=== PATIENT | male | born 1960 | race African-American/Black ===

== ENCOUNTER 2019-01-06 12:10 | Inpatient (IN) | payer OTHER ==
[2019-01-06 12:54] VITALS: BMI 22.1
--- NOTE | 2019-01-06 15:28 | HP ---
CIWA Score Nausea/Vomitin-Mild Nausea/No Vomiting Muscle Tremors: 3 Anxiety: 2 Agitation: 2 Paroxysmal Sweats: 2 Orientation: 1-Uncertain about Date Tacttile Disturbances: 0-None Auditory Disturbances: 0-None Visual Disturbances: 0-None Headache: 1-Very Mild CIWA-Ar Total Score: 12 - Admission Criteria OASAS Guidelines: Admission for Medically Managed Detox: Requires at least one of the followin. CIWA greater than 12 2. Seizures within the past 24 hours 3. Delirium tremens within the past 24 hours 4. Hallucinations within the past 24 hours 5. Acute intervention needed for co occurring medical disorder 6. Acute intervention needed for co occurring psychiatric disorder 7. Severe withdrawal that cannot be handled at a lower level of care (continued vomiting, continued diarrhea, abnormal vital signs) requiring intravenous medication and/or fluids 8. Patient presents the following: CIWA greater than 12 Admission Criteria Met: Admission criteria met Admission ROS [facility] Chief Complaint: here for alcohol detox 59 yo with h/o neck injury secondary to fall, HTN- on amlodipine,. alcohol- 1 pint/day, lsst drink last night no heroin, cocaine, occ marijuana DUR: : oxycodone 5mg pills #12 on 01/04/19 and #10 on 12/29/18: says gets this for neck pain- utox neg for oxycodone KARL: 0.042, Utox:THC, opiates- pt denies use of opiates Allergies/Adverse Reactions: Allergies Allergy/AdvReac Type Severity Reaction Status Date / Time ibuprofen Allergy Severe Swelling Verified 01/06/19 16:35 - Ebola screening Have you traveled outside of the country in the last 21 days: No (N) Have you had contact with anyone from an Ebola affected area: No Have you been sick,other than usual withdrawal symptoms: No Do you have a fever: No - Review of Systems Constitutional: No Symptoms Reported EENT: reports: No Symptoms Reported Respiratory: reports: No Symptoms reported Cardiac: reports: No Symptoms Reported GI: reports: No Symptoms Reported : reports: No Symptoms Reported Musculoskeletal: reports: Back Pain, Other (knee pain and shoulder pain) Integumentary: reports: No Symptoms Reported Neuro: reports: No Symptoms reported Endocrine: reports: No Symptoms Reported Hematology: reports: No Symptoms Reported Psychiatric: reports: No Sypmtoms Reported Other Systems: Reviewed and Negative Patient History - Patient Medical History Hx Asthma: No (BRONCHITIS AND ON MDI --ALBUTEROL) Hx Chronic Obstructive Pulmonary Disease (COPD): No Hx Cardiac Disorders: No Hx Congestive Heart Failure: No Hx Hypertension: Yes (ON AMLODIPINE) Hx Hypercholesterolemia: Yes (NOT ON MED) HX Cerebrovascular Accident: No Hx Seizures: No Hx Diabetes: No Hx Gastrointestinal Disorders: No Hx Genitourinary Disorders: No Hx Sexually Transmitted Disorders: No Hx Renal Disease (ESRD): No Hx Thyroid Disease: No Hx Human Immunodeficiency Virus (HIV): No (NEGATIVE) Hx Hepatitis C: No Hx Depression: No Hx Suicide Attempt: No (DENIES) Hx Bipolar Disorder: No Hx Schizophrenia: No - Patient Surgical History Past Surgical History: Yes Hx Neurologic Surgery: No Hx Cataract Extraction: No Hx Cardiac Surgery: No Hx Lung Surgery: No Hx Breast Surgery: No Hx Breast Biopsy: No Hx Abdominal Surgery: Yes (LEFT INGUINAL HERNIA SX AT 18 ) Hx Appendectomy: No Hx Cholecystectomy: No Hx Genitourinary Surgery: No Hx Section: No Hx Orthopedic Surgery: Yes (ARTHROSCOPIC LEFT KNEE 2013;FX RIGHT WRIST WITH SX IN LATE ) Anesthesia Reaction: No - PPD History Previous Implant?: Yes Documented Results: Positive w/proof Results: CXR TBD PPD to be Administered?: No - Reproductive History Patient : No - Smoking Cessation Smoking history: Current every day smoker Have you smoked in the past 12 months: Yes Aproximately how many cigarettes per day: 5 Hx Chewing Tobacco Use: No Initiated information on smoking cessation: Yes 'Breaking Loose' booklet given: 01/06/19 - Substance & Tx. History Hx Alcohol Use: Yes Substance Use Type: Marijuana, Prescribed - Substances Abused Alcohol Route: Oral Frequency: Daily Amount used: 1 PINT VODKA Age of first use: 18 Date of Last Use: 01/06/19 Family Disease History - Family Disease History Family Disease History: Heart Disease: Mother (BLOOD DISEASE & [place]-), Other: Mother Admission Physical Exam BHS - Vital Signs Vital Signs: Vital Signs - 24 hr 01/06/19 12:52 Temperature 98.5 F Pulse Rate 86 Respiratory 20 Rate Blood Pressure 142/91 - Physical General Appearance: Yes: Within Normal Limits, Disheveled HEENTM: Yes: Within Normal Limits, Hearing grossly Normal, Pharynx Normal Respiratory: Yes: Within Normal Limits, Lungs Clear Neck: Yes: Other (pt has scar back of neck from injury and surgery) Cardiology: Yes: Within Normal Limits, Regular Rhythm, Regular Rate Abdominal: Yes: Within Normal Limits Back: Yes: Within Normal Limits Musculoskeletal: Yes: Within Normal Limits, full range of Motion, Gait Steady Extremities: Yes: Within Normal Limits, Normal Capillary Refill Neurological: Yes: Within Normal Limits Integumentary: Yes: Within Normal Limits Lymphatic: Yes: Within Normal Limits - Diagnostic (1) Alcohol dependence with uncomplicated withdrawal Current Visit: Yes Status: Acute (2) History of asthma Current Visit: No Status: Chronic (3) Hypertension Current Visit: Yes Status: Chronic Qualifiers: Hypertension type: essential hypertension Qualified Code(s): I10 - Essential (primary) hypertension BHS Breath Alcohol Content Breath Alcohol Content: 0.042 Urine Drug Screen - Results Drug Screen Negative: No Urine Drug Screen Results: THC-Marijuana, OPI-Opiates Inpatient Rehab Admission - Rehab Decision to Admit Inpatient rehab admission?: No
[2019-01-06] MEDS ORDERED: IBUPROFEN 400 MG TABLET (FP) PO PRN (15:33)
[2019-01-06] MEDS ORDERED: MAGNESIUM HYDROX 2400MG/30ML ORAL SUSPENSION 30 ML CUP PO PRN (15:33)
[2019-01-06] MEDS ORDERED: MAGNESIUM CITRATE 300 ML BOTTLE PO PRN (15:33)
[2019-01-06] MEDS ORDERED: MENTHOL/PHENOL 1 EACH UD MM PRN (15:33)
[2019-01-06] MEDS ORDERED: guaiFENesin/D-METHORPHAN HB 10 ML UNIT-DOSE CUPS PO PRN (15:33)
[2019-01-06] MEDS ORDERED: hydrOXYzine PAMOATE 50 MG CAPSULE (FP) PO PRN (15:33)
[2019-01-06] MEDS ORDERED: P-EPHED 60MG/TRIPROLIDI 2.5MG TABLET PO PRN (15:33)
[2019-01-06] MEDS ORDERED: LOPERAMIDE HCL 2 MG CAPSULE PO PRN (15:33)
[2019-01-06] MEDS ORDERED: ALBUTEROL SO4 8 GM HFA INHALER IH PRN (15:35)
[2019-01-06] MEDS: ACETAMINOPHEN 325 MG TABLET (FP) PO PRN (17:49)
[2019-01-06] MEDS: amLODIPine BESYLATE 10 MG TABLET (FP) PO SCH (17:49)
[2019-01-06] MEDS: CYCLOBENZAPRINE HCL 5 MG TABLET PO PRN (18:35)
[2019-01-06] MEDS: THIAMINE HCL 100 MG TABLET (FP) PO SCH (22:36)
[2019-01-06] MEDS: MELATONIN 5 MG TABLETS PO PRN (22:36)
[2019-01-06] MEDS ORDERED: chlordiazePOXIDE HCL 25 MG CAPSULE PO PRN (22:42)
[2019-01-06] MEDS: chlordiazePOXIDE HCL 25 MG CAPSULE PO SCH (22:54)
[2019-01-07] MEDS: CYCLOBENZAPRINE HCL 5 MG TABLET PO PRN ×2 (05:41→11:01)
[2019-01-07] MEDS: chlordiazePOXIDE HCL 25 MG CAPSULE PO SCH ×4 (05:41→22:19)
[2019-01-07 10:19] LABS: HEMATOCRIT 36.7 % (35.4-49); HEMOGLOBIN 12.2 GM/dL (11.7-16.9); MCH 29.3 pg (25.7-33.7); MCHC 33.4 g/dl (32.0-35.9); MEAN CELL VOLUME 87.8 fl (80-96); MEAN PLT VOLUME 8.3 fl (7.5-11.1); PLATELET COUNT 225 K/MM3 (134-434); RBC 4.18 M/mm3 (4.00-5.60); RDW 16.3 % (11.9-15.9)
[2019-01-07 10:33] LABS: ALBUMIN 3.4 g/dl (3.4-5.0); ALK PHOS 102 U/L (45-117); ANION GAP 6 MMOL/L (8-16); BILIRUBIN,TOTAL 0.7 mg/dL (0.2-1); BLOOD UREA NITROGEN 11 mg/dL (7-18); CALCIUM 9.2 mg/dL (8.5-10.1); CHLORIDE 100 mmol/L (98-107); CO2 29 mmol/L (21-32); CREATININE 0.7 mg/dL (0.55-1.3); GLUCOSE,RANDOM 77 mg/dL (74-106); POTASSIUM 3.6 mmol/L (3.5-5.1); SGOT/AST 53 U/L (15-37); SGPT/ALT 32 U/L (13-61); SODIUM 136 mmol/L (136-145); TOT PROT 7.1 g/dl (6.4-8.2)
[2019-01-07] MEDS: PRENATAL VITAMINS W/ FOLIC ACID TABLET (FP) PO SCH (10:58)
[2019-01-07] MEDS: NICOTINE 7 MG/24 HOURS TOPICAL PATCH TD SCH (10:58)
[2019-01-07] MEDS: amLODIPine BESYLATE 10 MG TABLET (FP) PO SCH (10:58)
[2019-01-07] MEDS: ACETAMINOPHEN 325 MG TABLET (FP) PO PRN (17:43)
--- NOTE | 2019-01-07 18:32 | PN ---
S CIWA - CIWA Score Nausea/Vomitin Muscle Tremors: 4-Moderate,w/Arms Extend Anxiety: 4-Mod. Anxious/Guarded Agitation: 3 Paroxysmal Sweats: 3 Orientation: 0-Oriented Tacttile Disturbances: 1-Very Mild Itch/Numbness Auditory Disturbances: 0-None Visual Disturbances: 0-None Headache: 0-None Present CIWA-Ar Total Score: 17 BHS Progress Note (SOAP) Subjective: Sweating, interrupted sleep Objective: 01/07/19 18:30 Last Vital Signs Temp Pulse Resp BP Pulse Ox 98.4 F 88 18 153/78 01/07/19 18:25 01/07/19 18:25 01/07/19 18:25 01/07/19 18:25 H/O HTN (on med) Laboratory Tests 01/07/19 01/07/19 01/07/19 07:45 07:45 07:45 WBC 3.0 L RBC 4.18 Hgb 12.2 Hct 36.7 MCV 87.8 MCH 29.3 MCHC 33.4 RDW 16.3 H Plt Count 225 D MPV 8.3 Sodium 136 Potassium 3.6 Chloride 100 Carbon Dioxide 29 Anion Gap 6 L BUN 11 Creatinine 0.7 Creat Clearance w eGFR > 60 Random Glucose 77 Calcium 9.2 Total Bilirubin 0.7 AST 53 H ALT 32 Alkaline Phosphatase 102 Total Protein 7.1 Albumin 3.4 RPR Titer Nonreactive Labs reviewed Assessment: 01/07/19 18:31 Withdrawal symptoms Plan: Continue detox Encouraged PO water hydration
[2019-01-07] MEDS: THIAMINE HCL 100 MG TABLET (FP) PO SCH (22:19)
[2019-01-07] MEDS: MELATONIN 5 MG TABLETS PO PRN (22:19)
[2019-01-07] MEDS: MAG HYDROX/AL HYDROX/SIMETH 30 ML UNIT-DOSE CUP PO PRN (22:20)
[2019-01-08] MEDS: CYCLOBENZAPRINE HCL 5 MG TABLET PO PRN ×2 (06:39→22:07)
[2019-01-08] MEDS: chlordiazePOXIDE HCL 25 MG CAPSULE PO SCH ×3 (06:40→17:44)
[2019-01-08] MEDS: PRENATAL VITAMINS W/ FOLIC ACID TABLET (FP) PO SCH (10:35)
[2019-01-08] MEDS: amLODIPine BESYLATE 10 MG TABLET (FP) PO SCH (10:35)
[2019-01-08] MEDS: NICOTINE 7 MG/24 HOURS TOPICAL PATCH TD SCH (10:36)
--- NOTE | 2019-01-08 13:41 | PN ---
S CIWA - CIWA Score Nausea/Vomitin-No Nausea/No Vomiting Muscle Tremors: 4-Moderate,w/Arms Extend Anxiety: 3 Agitation: 2 Paroxysmal Sweats: 2 Orientation: 0-Oriented Tacttile Disturbances: 0-None Auditory Disturbances: 0-None Visual Disturbances: 0-None Headache: 1-Very Mild CIWA-Ar Total Score: 12 S Progress Note (SOAP) Subjective: neck pain sweats agitation body aches Objective: 01/08/19 13:39 Vital Signs Temperature 98.1 F 01/08/19 10:43 Pulse Rate 76 01/08/19 10:43 Respiratory Rate 18 01/08/19 10:43 Blood Pressure 113/73 01/08/19 10:43 O2 Sat by Pulse Oximetry (%) Laboratory Tests 01/07/19 01/07/19 01/07/19 07:45 07:45 07:45 WBC 3.0 L RBC 4.18 Hgb 12.2 Hct 36.7 MCV 87.8 MCH 29.3 MCHC 33.4 RDW 16.3 H Plt Count 225 D MPV 8.3 Sodium 136 Potassium 3.6 Chloride 100 Carbon Dioxide 29 Anion Gap 6 L BUN 11 Creatinine 0.7 Creat Clearance w eGFR > 60 Random Glucose 77 Calcium 9.2 Total Bilirubin 0.7 AST 53 H ALT 32 Alkaline Phosphatase 102 Total Protein 7.1 Albumin 3.4 RPR Titer Nonreactive aaox3 ambulating no acute distress Assessment: 01/08/19 13:41 withdrawal sx Plan: continue detox increase fluids lidocaine patch
[2019-01-08] MEDS ORDERED: LIDOCAINE 5% TOPICAL PATCH TP ONE (14:50)
[2019-01-08] MEDS: ACETAMINOPHEN 325 MG TABLET (FP) PO PRN ×2 (17:46→22:08)
[2019-01-08] MEDS ORDERED: METHYL SALICYLATE/MENTHOL OINT 30 GM TUBE TP SCH (22:00)
[2019-01-08] MEDS: THIAMINE HCL 100 MG TABLET (FP) PO SCH (22:07)
[2019-01-08] MEDS: chlordiazePOXIDE 5 MG CAPSULE PO SCH (22:07)
[2019-01-08] MEDS: LIDOCAINE PATCH REMOVAL MC SCH (22:08)
[2019-01-08] MEDS: MELATONIN 5 MG TABLETS PO PRN (22:08)
[2019-01-09] MEDS: chlordiazePOXIDE 5 MG CAPSULE PO SCH ×3 (05:55→17:38)
[2019-01-09] MEDS: MAG HYDROX/AL HYDROX/SIMETH 30 ML UNIT-DOSE CUP PO PRN (05:57)
[2019-01-09] MEDS: LIDOCAINE 5% TOPICAL PATCH TP SCH (10:13)
[2019-01-09] MEDS: amLODIPine BESYLATE 10 MG TABLET (FP) PO SCH (10:13)
[2019-01-09] MEDS: PRENATAL VITAMINS W/ FOLIC ACID TABLET (FP) PO SCH (10:13)
[2019-01-09] MEDS: NICOTINE 7 MG/24 HOURS TOPICAL PATCH TD SCH (10:14)
--- NOTE | 2019-01-09 11:45 | PN ---
BHS Progress Note (SOAP) Subjective: irritable tired sweats Objective: 01/09/19 11:45 Vital Signs Temperature 98.4 F 01/09/19 10:04 Pulse Rate 104 H 01/09/19 10:04 Respiratory Rate 18 01/09/19 10:04 Blood Pressure 126/95 01/09/19 10:04 O2 Sat by Pulse Oximetry (%) aaox3 ambulating no acute distress Assessment: 01/09/19 11:45 mild withdrawal sx Plan: continue detox increase fluids d/c in am
[2019-01-09] MEDS: LIDOCAINE PATCH REMOVAL MC SCH (22:07)
[2019-01-09] MEDS: THIAMINE HCL 100 MG TABLET (FP) PO SCH (22:08)
[2019-01-09] MEDS: MELATONIN 5 MG TABLETS PO PRN (22:08)
[2019-01-09] MEDS: CYCLOBENZAPRINE HCL 5 MG TABLET PO PRN (22:08)
[2019-01-09] MEDS: chlordiazePOXIDE HCL 10 MG CAPSULE PO SCH (22:08)
[2019-01-09] MEDS: ACETAMINOPHEN 325 MG TABLET (FP) PO PRN (22:10)
[2019-01-10] MEDS: chlordiazePOXIDE HCL 10 MG CAPSULE PO SCH ×2 (06:23→10:31)
--- NOTE | 2019-01-10 09:50 | DS ---
[facility] Detox Discharge Summary Admission Date: 01/06/19 Discharge Date: 01/10/19 - History Present History: Alcohol Dependence - Physical Exam Results Vital Signs: Vital Signs Temperature 97.5 F L 01/10/19 07:52 Pulse Rate 86 01/10/19 07:52 Respiratory Rate 18 01/10/19 07:52 Blood Pressure 129/94 01/10/19 07:52 O2 Sat by Pulse Oximetry (%) - Treatment Hospital Course: Detox Protocol Followed, Detoxed Safely, Responded well, Discharged Condition Good, Rehab Referral Accepted - Medication Discharge Medications: Ambulatory Orders Albuterol Sulfate Inhaler - [Ventolin HFA Inhaler -] 2 inh PO Q4H PRN 05/03/16 Albuterol Sulfate Inhaler - [Ventolin HFA Inhaler -] 2 puff IH Q4HPO PRN #1 inhaler 05/24/16 Amlodipine Besylate [Norvasc -] 10 mg PO DAILY #30 tablet 05/24/16 - Diagnosis (1) Alcohol dependence with uncomplicated withdrawal Current Visit: Yes Status: Chronic (2) HLD (hyperlipidemia) Current Visit: Yes Status: Chronic (3) Hx of bronchitis Current Visit: Yes Status: Chronic (4) Hypertension Current Visit: Yes Status: Chronic Qualifiers: Hypertension type: essential hypertension Qualified Code(s): I10 - Essential (primary) hypertension (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
[2019-01-10 10:00] VITALS: BP 127/85; PULSE 96; TEMP 98.1
[2019-01-10] MEDS: PRENATAL VITAMINS W/ FOLIC ACID TABLET (FP) PO SCH (10:29)
[2019-01-10] MEDS: amLODIPine BESYLATE 10 MG TABLET (FP) PO SCH (10:30)
[2019-01-10] MEDS: NICOTINE 7 MG/24 HOURS TOPICAL PATCH TD SCH (10:30)
[2019-01-10] MEDS: LIDOCAINE 5% TOPICAL PATCH TP SCH (10:30)
[2019-01-10] MEDS: ACETAMINOPHEN 325 MG TABLET (FP) PO PRN (10:31)
== END 2019-01-10 10:55 | disposition home or self-care (01) | DRG 775 ==
LOC: YASAS 12:10 → Y6N 16:03
PROVIDERS: ADMIT Surgery; ATTEND Surgery
PROC: HZ2ZZZZ Detoxification Services for Substance Abuse Treatment (ICD-10-PCS; principal; 2019-01-06)
DX: F10.230 Alcohol dependence with withdrawal, uncomplicated (principal); F17.210 Nicotine dependence, cigarettes, uncomplicated; I10 Essential (primary) hypertension; E78.5 Hyperlipidemia, unspecified; R76.11 Nonspecific reaction to tuberculin skin test without active tuberculosis; J45.909 Unspecified asthma, uncomplicated
CPT/HCPCS: 36415; 71046-TC-FY; 80053; 85027; 86593

== ENCOUNTER 2019-05-18 09:54 | Inpatient (IN) | payer OTHER ==
[2019-05-18 14:28] VITALS: BMI 22.8
--- NOTE | 2019-05-18 15:00 | HP ---
CIWA Score Nausea/Vomitin-No Nausea/No Vomiting Muscle Tremors: 1-None Visible, but [place] Anxiety: 4-Mod. Anxious/Guarded Agitation: 4-Moderately Restless Paroxysmal Sweats: 3 Orientation: 0-Oriented Tacttile Disturbances: 0-None Auditory Disturbances: 0-None Visual Disturbances: 0-None Headache: 0-None Present CIWA-Ar Total Score: 12 - Admission Criteria OASAS Guidelines: Admission for Medically Managed Detox: Requires at least one of the followin. CIWA greater than 12 2. Seizures within the past 24 hours 3. Delirium tremens within the past 24 hours 4. Hallucinations within the past 24 hours 5. Acute intervention needed for co occurring medical disorder 6. Acute intervention needed for co occurring psychiatric disorder 7. Severe withdrawal that cannot be handled at a lower level of care (continued vomiting, continued diarrhea, abnormal vital signs) requiring intravenous medication and/or fluids 8. Admission ROS BHS - HPI Chief Complaint: I need to stop drinking and get better. Allergies/Adverse Reactions: Allergies Allergy/AdvReac Type Severity Reaction Status Date / Time ibuprofen Allergy Severe Swelling Verified 05/18/19 14:12 ZUNILDA Inhibitors AdvReac Verified 05/18/19 14:54 History of Present Illness: pt is a 59yr old male with a history of alcohol dependence seeking detox for treatment. Exam Limitations: No Limitations - Ebola screening Have you traveled outside of the country in the last 21 days: No Have you had contact with anyone from an Ebola affected area: No Have you been sick,other than usual withdrawal symptoms: No Do you have a fever: No - Review of Systems Constitutional: Diaphoresis, Unintentional Wgt. Loss EENT: reports: No Symptoms Reported Respiratory: reports: No Symptoms reported Cardiac: reports: No Symptoms Reported GI: reports: Poor Fluid Intake : reports: No Symptoms Reported Musculoskeletal: reports: Back Pain, Muscle Pain Integumentary: reports: Rash, Other (plaque psoriasis all over body) Endocrine: reports: Excessive Sweating, Flushing, Intolerance to Cold, Intolerance to Heat Hematology: reports: No Symptoms Reported Psychiatric: reports: Judgement Intact, Orientated x3, Agitated, Anxious Other Systems: Reviewed and Negative Patient History - Patient Medical History Hx Anemia: No Hx Asthma: No (BRONCHITIS AND ON MDI --ALBUTEROL) Hx Chronic Obstructive Pulmonary Disease (COPD): No Hx Cancer: No Hx Cardiac Disorders: No Hx Congestive Heart Failure: No Hx Hypertension: Yes (ON AMLODIPINE) Hx Hypercholesterolemia: Yes (NOT ON MED) HX Cerebrovascular Accident: No Hx Seizures: No Hx Dementia: No Hx Diabetes: No Hx Gastrointestinal Disorders: No Hx Liver Disease: No Hx Genitourinary Disorders: No Hx Sexually Transmitted Disorders: No Hx Renal Disease (ESRD): No Hx Thyroid Disease: No Hx Human Immunodeficiency Virus (HIV): No (NEGATIVE) Hx Hepatitis C: No Hx Depression: No Hx Suicide Attempt: No (DENIES) Hx Bipolar Disorder: No Hx Schizophrenia: No - Patient Surgical History Past Surgical History: Yes Hx Neurologic Surgery: No Hx Cataract Extraction: No Hx Cardiac Surgery: No Hx Lung Surgery: No Hx Breast Surgery: No Hx Breast Biopsy: No Hx Abdominal Surgery: Yes (LEFT INGUINAL HERNIA SX AT 18 ) Hx Appendectomy: No Hx Cholecystectomy: No Hx Genitourinary Surgery: No Hx Section: No Hx Orthopedic Surgery: Yes (ARTHROSCOPIC LEFT KNEE 2013;FX RIGHT WRIST WITH SX IN LATE ) Other Surgical History: cervical surgery 2010 Anesthesia Reaction: No - PPD History Previous Implant?: Yes Documented Results: Positive w/proof Results: CXR TBD PPD to be Administered?: No - Reproductive History Patient is a Female of Child Bearing Age (11 -55 yrs old): No - Smoking Cessation Smoking history: Current every day smoker Have you smoked in the past 12 months: Yes Aproximately how many cigarettes per day: 5 Hx Chewing Tobacco Use: No Initiated information on smoking cessation: Yes 'Breaking Loose' booklet given: 05/18/19 - Substance & Tx. History Hx Alcohol Use: Yes Substance Use Type: Alcohol Hx Substance Use Treatment: Yes (last detox [facility] 12/2018) - Substances abused Alcohol Substance route: Oral Frequency: Daily Amount used: 1 PINT OF VODKA Age of first use: 16 Date of last use: 05/17/19 Family Disease History - Family Disease History Family Disease History: Heart Disease: Mother (BLOOD DISEASE & [place]-), Other: Mother Admission Physical Exam BHS - Vital Signs Vital Signs: Vital Signs - 24 hr 05/18/19 14:18 Temperature 98.2 F Pulse Rate 78 Respiratory 18 Rate Blood Pressure 195/108 H - Physical General Appearance: Yes: Appropriately Dressed, Moderate Distress, Tremorous, Irritable, Sweating HEENTM: Yes: Hearing grossly Normal, Normal Voice Respiratory: Yes: Lungs Clear, Normal Breath Sounds, No Respiratory Distress Neck: Yes: No masses,lesions,Nodules Breast: Yes: Within Normal Limits Cardiology: Yes: Regular Rhythm, Regular Rate, S1, S2 Abdominal: Yes: Normal Bowel Sounds, Non Tender, Soft Genitourinary: Yes: Within Normal Limits Back: Yes: Normal Inspection Musculoskeletal: Yes: Back pain, Muscle Pain, Other (stiff neck d/t old sugery to his cervical) Extremities: Yes: Normal Capillary Refill, Non-Tender, Tremors Neurological: Yes: Fully Oriented, Alert, Normal Response Integumentary: Yes: Other (plaque psoriasis to legs, arms, hands) Lymphatic: Yes: Within Normal Limits - Diagnostic (1) Alcohol dependence with uncomplicated withdrawal Current Visit: Yes Status: Chronic (2) HLD (hyperlipidemia) Current Visit: No Status: Chronic Qualifiers: Hyperlipidemia type: unspecified Qualified Code(s): E78.5 - Hyperlipidemia , unspecified (3) History of asthma Current Visit: Yes Status: Chronic (4) Hypertension Current Visit: Yes Status: Chronic Qualifiers: Hypertension type: essential hypertension Qualified Code(s): I10 - Essential (primary) hypertension (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
[2019-05-18] MEDS ORDERED: BISMUTH SUBSALICYLATE 524 MG/30 ML UD PO PRN (15:17)
[2019-05-18] MEDS ORDERED: MAG HYDROX/AL HYDROX/SIMETH 30 ML UNIT-DOSE CUP PO PRN (15:17)
[2019-05-18] MEDS ORDERED: hydrOXYzine PAMOATE 25 MG CAPSULE (FP) PO PRN (15:17)
[2019-05-18] MEDS ORDERED: chlordiazePOXIDE HCL 25 MG CAPSULE PO PRN (15:17)
[2019-05-18] MEDS ORDERED: ONDANSETRON *ODT* 4 MG TABLET SL PRN (15:17)
[2019-05-18] MEDS ORDERED: MAGNESIUM CITRATE 300 ML BOTTLE PO PRN (15:17)
[2019-05-18] MEDS ORDERED: MAGNESIUM HYDROX 2400MG/30ML ORAL SUSPENSION 30 ML CUP PO PRN (15:17)
[2019-05-18] MEDS ORDERED: ACETAMINOPHEN 325 MG TABLET (FP) PO PRN (15:17)
[2019-05-18] MEDS ORDERED: NICOTINE POLACRILEX 4 MG GUM BUC PRN (15:17)
[2019-05-18] MEDS ORDERED: MENTHOL/PHENOL 1 EACH UD MM PRN (15:17)
[2019-05-18] MEDS ORDERED: ALBUTEROL SO4 8 GM HFA INHALER IH PRN (15:20)
[2019-05-18 16:06] LABS: HEMATOCRIT 35.1 % (35.4-49); HEMOGLOBIN 11.4 GM/dL (11.7-16.9); MCH 29.4 pg (25.7-33.7); MCHC 32.6 g/dl (32.0-35.9); MEAN CELL VOLUME 90.2 fl (80-96); MEAN PLT VOLUME 8.2 fl (7.5-11.1); PLATELET COUNT 172 K/MM3 (134-434); RBC 3.89 M/mm3 (4.00-5.60); RDW 17.9 % (11.9-15.9); WHITE BLOOD COUNT 3.2 K/mm3 (4.0-10.0)
[2019-05-18 16:23] LABS: ALBUMIN 3.7 g/dl (3.4-5.0); BILIRUBIN,TOTAL 0.4 mg/dL (0.2-1); BLOOD UREA NITROGEN 9.8 mg/dL (7-18); CALCIUM 8.6 mg/dL (8.5-10.1); CREATININE 0.8 mg/dL (0.55-1.3); POTASSIUM 3.6 mmol/L (3.5-5.1); TOT PROT 7.9 g/dl (6.4-8.2)
[2019-05-18] MEDS: FLUOCINONIDE 0.05% TOP OINT (60 GM TUBE) TP SCH ×2 (20:42→23:06)
[2019-05-18] MEDS: amLODIPine BESYLATE 10 MG TABLET (FP) PO SCH (20:43)
[2019-05-18] MEDS: chlordiazePOXIDE HCL 25 MG CAPSULE PO SCH ×2 (20:45→23:06)
[2019-05-18] MEDS: THIAMINE HCL 100 MG TABLET (FP) PO SCH (23:06)
[2019-05-18] MEDS: METHOCARBAMOL 500 MG TABLET PO PRN (23:10)
[2019-05-18] MEDS: MELATONIN 5 MG TABLETS PO PRN (23:10)
[2019-05-19] MEDS: chlordiazePOXIDE HCL 25 MG CAPSULE PO SCH ×4 (06:24→22:34)
[2019-05-19] MEDS: NICOTINE 21 MG/24 HOURS TOPICAL PATCH TD SCH (11:11)
[2019-05-19] MEDS: amLODIPine BESYLATE 10 MG TABLET (FP) PO SCH (11:15)
[2019-05-19] MEDS: PRENATAL VITAMINS W/ FOLIC ACID TABLET (FP) PO SCH (11:15)
[2019-05-19] MEDS: ACETAMINOPHEN 325 MG TABLET (FP) PO PRN (11:20)
[2019-05-19] MEDS: FLUOCINONIDE 0.05% TOP OINT (60 GM TUBE) TP SCH ×4 (12:08→23:14)
--- NOTE | 2019-05-19 12:09 | PN ---
S CIWA - CIWA Score Nausea/Vomitin-Mild Nausea/No Vomiting Muscle Tremors: 2 Anxiety: 2 Agitation: 0-Normal Activity Paroxysmal Sweats: 2 Orientation: 0-Oriented Tacttile Disturbances: 0-None Auditory Disturbances: 0-None Visual Disturbances: 0-None Headache: 3-Moderate CIWA-Ar Total Score: 10 BHS Progress Note (SOAP) Subjective: PATIENT C/O HEADACHE, ANXIETY, NIGHT SWEATS, FEELING TIRED AND SHAKES. Objective: 05/19/19 12:06 Laboratory Tests 05/18/19 05/18/19 05/18/19 15:15 15:15 15:15 WBC 3.2 L RBC 3.89 L Hgb 11.4 L Hct 35.1 L MCV 90.2 MCH 29.4 MCHC 32.6 RDW 17.9 H Plt Count 172 D MPV 8.2 Sodium 142 Potassium 3.6 Chloride 106 Carbon Dioxide 28 Anion Gap 9 BUN 9.8 Creatinine 0.8 Est GFR (CKD-EPI)AfAm 114.93 Est GFR (CKD-EPI)NonAf 99.16 Random Glucose 69 L Calcium 8.6 Total Bilirubin 0.4 AST 69 H ALT 30 Alkaline Phosphatase 98 Total Protein 7.9 Albumin 3.7 RPR Titer Nonreactive Vital Signs Temperature 98.1 F 05/19/19 09:52 Pulse Rate 74 05/19/19 09:52 Respiratory Rate 18 05/19/19 09:52 Blood Pressure 156/100 05/19/19 09:52 O2 Sat by Pulse Oximetry (%) PE: ALERT AND ORIENTED X 3 SKIN WARM AND DRY EXT FULL ROM, AMB AD OBEY, MILD TREMORS MILDLY ANXIOUS Assessment: 05/19/19 12:08 WITHDRAWAL SX Plan: CONTINUE DETOX MONITOR CLINICALLY
[2019-05-19] MEDS: LIDOCAINE 5% TOPICAL PATCH TP SCH (18:11)
--- NOTE | 2019-05-19 19:48 | PN ---
BHS Progress Note Note: patient has heperkeratosis both feet has been having problem for 2 years callus betadine soak both feet feet bid each 10 mins
[2019-05-19] MEDS: THIAMINE HCL 100 MG TABLET (FP) PO SCH (22:34)
[2019-05-19] MEDS: LIDOCAINE PATCH REMOVAL MC SCH (22:35)
[2019-05-19] MEDS: MELATONIN 5 MG TABLETS PO PRN (22:35)
[2019-05-19] MEDS: AMMONIUM LACTATE 12% LOTION 225 GM BOTTLE TP SCH (22:55)
[2019-05-19] MEDS ORDERED: cloNIDine HCL 0.1 MG TABLET PO ONE (23:29)
--- NOTE | 2019-05-19 23:31 | PN ---
S Progress Note Note: Patient's blood pressure is B/P 160/90. Patient is asymptomatic. Vital Signs Temperature 98.2 F 05/19/19 21:49 Pulse Rate 78 05/19/19 21:49 Respiratory Rate 16 05/19/19 21:49 Blood Pressure 160/90 05/19/19 21:49 O2 Sat by Pulse Oximetry (%) Action: Clonidine 0.1mg tablet oral ordered
[2019-05-20] MEDS: chlordiazePOXIDE HCL 25 MG CAPSULE PO SCH ×2 (06:37→11:22)
[2019-05-20] MEDS: NICOTINE 21 MG/24 HOURS TOPICAL PATCH TD SCH (11:17)
[2019-05-20] MEDS: FLUOCINONIDE 0.05% TOP OINT (60 GM TUBE) TP SCH ×4 (11:18→23:47)
[2019-05-20] MEDS: AMMONIUM LACTATE 12% LOTION 225 GM BOTTLE TP SCH ×2 (11:19→23:47)
[2019-05-20] MEDS: amLODIPine BESYLATE 10 MG TABLET (FP) PO SCH (11:21)
[2019-05-20] MEDS: PRENATAL VITAMINS W/ FOLIC ACID TABLET (FP) PO SCH (11:21)
[2019-05-20] MEDS: ACETAMINOPHEN 325 MG TABLET (FP) PO PRN (11:27)
--- NOTE | 2019-05-20 14:57 | PN ---
S CIWA - CIWA Score Nausea/Vomitin-No Nausea/No Vomiting Muscle Tremors: None Anxiety: 4-Mod. Anxious/Guarded Agitation: 4-Moderately Restless Paroxysmal Sweats: No Perspiration Orientation: 0-Oriented Tacttile Disturbances: 0-None Auditory Disturbances: 0-None Visual Disturbances: 0-None Headache: 0-None Present CIWA-Ar Total Score: 8 BHS Progress Note (SOAP) Subjective: States he is feeling ok as the medication is helping with alleviating symptoms. Patient refused to elaborate. Objective: 05/20/19 14:53 Last Vital Signs Temp Pulse Resp BP Pulse Ox 97.7 F 83 16 143/97 05/20/19 14:11 05/20/19 14:11 05/20/19 14:11 05/20/19 14:11 Elevated b/p (has HTN, on norvasc 10mg daily) Laboratory Tests 05/18/19 05/18/19 05/18/19 15:15 15:15 15:15 WBC 3.2 L RBC 3.89 L Hgb 11.4 L Hct 35.1 L MCV 90.2 MCH 29.4 MCHC 32.6 RDW 17.9 H Plt Count 172 D MPV 8.2 Sodium 142 Potassium 3.6 Chloride 106 Carbon Dioxide 28 Anion Gap 9 BUN 9.8 Creatinine 0.8 Est GFR (CKD-EPI)AfAm 114.93 Est GFR (CKD-EPI)NonAf 99.16 Random Glucose 69 L Calcium 8.6 Total Bilirubin 0.4 AST 69 H ALT 30 Alkaline Phosphatase 98 Total Protein 7.9 Albumin 3.7 RPR Titer Nonreactive Labs reviewed Assessment: 05/20/19 14:54 Withdrawal symptoms Plan: Continue detox Encouraged PO water intake
[2019-05-20] MEDS: LIDOCAINE 5% TOPICAL PATCH TP SCH (15:18)
[2019-05-20] MEDS: chlordiazePOXIDE HCL 10 MG CAPSULE PO SCH ×2 (17:25→22:20)
[2019-05-20] MEDS: MELATONIN 5 MG TABLETS PO PRN (22:20)
[2019-05-20] MEDS: METHOCARBAMOL 500 MG TABLET PO PRN (22:20)
[2019-05-20] MEDS: THIAMINE HCL 100 MG TABLET (FP) PO SCH (22:20)
[2019-05-20] MEDS: LIDOCAINE PATCH REMOVAL MC SCH (23:47)
[2019-05-21] MEDS: chlordiazePOXIDE HCL 10 MG CAPSULE PO SCH ×3 (06:27→18:04)
[2019-05-21] MEDS: AMMONIUM LACTATE 12% LOTION 225 GM BOTTLE TP SCH ×2 (10:52→22:52)
[2019-05-21] MEDS: NICOTINE 21 MG/24 HOURS TOPICAL PATCH TD SCH (10:53)
[2019-05-21] MEDS: PRENATAL VITAMINS W/ FOLIC ACID TABLET (FP) PO SCH (10:53)
[2019-05-21] MEDS: amLODIPine BESYLATE 10 MG TABLET (FP) PO SCH (10:53)
[2019-05-21] MEDS: FLUOCINONIDE 0.05% TOP OINT (60 GM TUBE) TP SCH ×4 (10:53→22:52)
[2019-05-21] MEDS: LIDOCAINE 5% TOPICAL PATCH TP SCH (11:00)
[2019-05-21] MEDS ORDERED: COLLOIDAL OATMEAL 1 BAR EACH TP PRN (13:06)
--- NOTE | 2019-05-21 13:23 | PN ---
S CIWA - CIWA Score Nausea/Vomitin-No Nausea/No Vomiting Muscle Tremors: None Anxiety: 1-Mildly Anxious Agitation: 1-Slight > Activity Paroxysmal Sweats: No Perspiration Orientation: 0-Oriented Tacttile Disturbances: 0-None Auditory Disturbances: 0-None Visual Disturbances: 0-None Headache: 0-None Present CIWA-Ar Total Score: 2 BHS Progress Note (SOAP) Subjective: feeling better very little sweats Objective: 05/21/19 13:22 Vital Signs Temperature 98.6 F 05/21/19 09:14 Pulse Rate 72 05/21/19 09:14 Respiratory Rate 17 05/21/19 09:14 Blood Pressure 147/94 05/21/19 09:14 O2 Sat by Pulse Oximetry (%) aaox3 ambulating no acute distress Assessment: 05/21/19 13:22 mild to no s/s of withdrawal sx Plan: continue detox increase fluids d/c in am
[2019-05-21] MEDS: THIAMINE HCL 100 MG TABLET (FP) PO SCH (22:52)
[2019-05-21] MEDS: MELATONIN 5 MG TABLETS PO PRN (22:52)
[2019-05-21] MEDS: LIDOCAINE PATCH REMOVAL MC SCH (22:54)
[2019-05-22] MEDS: chlordiazePOXIDE HCL 10 MG CAPSULE PO SCH (06:12)
--- NOTE | 2019-05-22 09:22 | DS ---
[facility] Detox Discharge Summary Admission Date: 05/18/19 Discharge Date: 05/22/19 - History Present History: Alcohol Dependence - Physical Exam Results Vital Signs: Vital Signs Temperature 98.2 F 05/22/19 06:00 Pulse Rate 69 05/22/19 06:00 Respiratory Rate 18 05/22/19 06:00 Blood Pressure 137/85 05/22/19 06:00 O2 Sat by Pulse Oximetry (%) - Treatment Hospital Course: Detox Protocol Followed, Detoxed Safely, Responded well, Discharged Condition Good, Rehab Referral Accepted - Medication Discharge Medications: Ambulatory Orders Albuterol Sulfate Inhaler - [Ventolin HFA Inhaler -] 2 puff IH Q4HPO PRN #1 inhaler 05/24/16 Amlodipine Besylate [Norvasc -] 10 mg PO DAILY #30 tablet 05/24/16 Halobetasol Prop 0.05% Tp Crm [Ultravate (Nf)] 1 applic TP BID 05/18/19 - Diagnosis (1) Alcohol dependence with uncomplicated withdrawal Current Visit: Yes Status: Chronic (2) HLD (hyperlipidemia) Current Visit: No Status: Chronic Qualifiers: Hyperlipidemia type: unspecified Qualified Code(s): E78.5 - Hyperlipidemia , unspecified (3) History of asthma Current Visit: Yes Status: Chronic (4) Hypertension Current Visit: Yes Status: Chronic Qualifiers: Hypertension type: essential hypertension Qualified Code(s): I10 - Essential (primary) hypertension (5) PPD positive Current Visit: No Status: Chronic (6) Plaque psoriasis Current Visit: Yes Status: Chronic - AMA Did Patient Leave Against Medical Advice: No (referred to [facility] P)
[2019-05-22 09:39] VITALS: BP 140/92; PULSE 75; TEMP 97.2
== END 2019-05-22 09:35 | disposition home or self-care (01) | DRG 775 ==
LOC: YASAS 09:54 → Y6N 16:09
PROVIDERS: ADMIT Surgery; ATTEND Surgery
PROC: HZ2ZZZZ Detoxification Services for Substance Abuse Treatment (ICD-10-PCS; principal; 2019-05-18)
DX: F10.230 Alcohol dependence with withdrawal, uncomplicated (principal); F17.210 Nicotine dependence, cigarettes, uncomplicated; I10 Essential (primary) hypertension; E78.5 Hyperlipidemia, unspecified; J45.909 Unspecified asthma, uncomplicated; R76.11 Nonspecific reaction to tuberculin skin test without active tuberculosis; L40.0 Psoriasis vulgaris; L85.9 Epidermal thickening, unspecified; L84 Corns and callosities; Z88.6 Allergy status to analgesic agent
CPT/HCPCS: 36415; 80053; 85027; 86593; J0735

== ENCOUNTER 2020-08-08 15:18 | Inpatient (IN) | payer OTHER ==
--- NOTE | 2020-08-08 15:49 | BHS.RME ---
Substance Use & Tx History - Substance Use History Alcohol Substance amount: 1 pint vodka Frequency of use: Daily Substance route: Oral Date of Last Use: 08/08/20 Marijuana/Hashish Substance amount: $10 Frequency of use: Less than 3 times per week Substance route: Smoking Date of Last Use: 08/06/20 Physical/Psych/Mental Status - Behavior General Behavior: Increased activity (restlessness, agitation) Eye Contact: Normal - Cooperativeness Cooperativeness: Cooperative - Thinking Thought Processes: Tight, Logical, Goal Directed CIWA Nausea/Vomitin Muscle Tremors: 4-Moderate,w/Arms Extend Anxiety: 3 Agitation: 3 Paroxysmal Sweats: 1-Minimal Palms Moist Orientation: 0-Oriented Tacttile Disturbances: 1-Very Mild Itch/Numbness Auditory Disturbances: 0-None Visual Disturbances: 2-Mild Sensitivity Headache: 0-None Present CIWA-Ar Total Score: 17
[2020-08-08 16:25] VITALS: BMI 21.6
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
[2020-08-08] MEDS ORDERED: MENTHOL/PHENOL 1 EACH UD MM PRN (17:43)
[2020-08-08] MEDS ORDERED: MAGNESIUM HYDROX 2400MG/30ML ORAL SUSPENSION 30 ML CUP PO PRN (17:43)
[2020-08-08] MEDS ORDERED: ACETAMINOPHEN 325 MG TABLET (FP) PO PRN (17:43)
[2020-08-08] MEDS ORDERED: MAGNESIUM CITRATE 300 ML BOTTLE PO PRN (17:43)
[2020-08-08] MEDS ORDERED: LORazepam 1 MG TABLET PO PRN (17:43)
[2020-08-08] MEDS ORDERED: ONDANSETRON *ODT* 4 MG TABLET SL PRN (17:43)
[2020-08-08] MEDS ORDERED: NICOTINE POLACRILEX 2 MG GUM BUC PRN (17:43)
[2020-08-08] MEDS ORDERED: MAG HYDROX/AL HYDROX/SIMETH 30 ML UNIT-DOSE CUP PO PRN (17:43)
[2020-08-08] MEDS: ACETAMINOPHEN 325 MG TABLET (FP) PO PRN (19:24)
[2020-08-08] MEDS: METHOCARBAMOL 500 MG TABLET PO PRN (19:26)
[2020-08-08] MEDS: MELATONIN 5 MG TABLETS PO SCH (22:25)
[2020-08-08] MEDS: THIAMINE HCL 100 MG TABLET (FP) PO SCH (22:25)
[2020-08-08] MEDS: LORazepam 2 MG TABLET PO SCH (22:25)
[2020-08-09] MEDS: METHOCARBAMOL 500 MG TABLET PO PRN ×2 (05:16→13:28)
[2020-08-09] MEDS: LORazepam 2 MG TABLET PO SCH ×4 (05:16→22:51)
[2020-08-09 09:45] LABS: POTASSIUM 3.3 mmol/L (3.5-5.1)
[2020-08-09 09:57] LABS: ALBUMIN 3.3 g/dl (3.4-5.0); BILIRUBIN,TOTAL 1.1 mg/dL (0.2-1); BLOOD UREA NITROGEN 6.9 mg/dL (7-18); CALCIUM 8.6 mg/dL (8.5-10.1); CREATININE 0.6 mg/dL (0.55-1.3); TOT PROT 7.5 g/dl (6.4-8.2)
[2020-08-09 10:03] LABS: HEMATOCRIT 35.8 % (35.4-49); HEMOGLOBIN 11.7 GM/dL (11.7-16.9); MCH 28.9 pg (25.7-33.7); MCHC 32.6 g/dl (32.0-35.9); MEAN CELL VOLUME 88.9 fl (80-96); MEAN PLT VOLUME 8.5 fl (7.5-11.1); PLATELET COUNT 230 K/MM3 (134-434); RBC 4.03 M/mm3 (4.00-5.60); RDW 15.5 % (11.9-15.9); WHITE BLOOD COUNT 3.5 K/mm3 (4.0-10.0)
[2020-08-09] MEDS ORDERED: POTASSIUM CHLORIDE TABS 20 MEQ TABLET.ER (FP) PO ONE (10:38)
--- NOTE | 2020-08-09 10:40 | PN ---
[facility] CIWA - CIWA Score Nausea/Vomitin-No Nausea/No Vomiting Muscle Tremors: 2 Anxiety: 3 Agitation: 1-Slight > Activity Paroxysmal Sweats: 3 Orientation: 0-Oriented Tacttile Disturbances: 0-None Auditory Disturbances: 0-None Visual Disturbances: 0-None Headache: 2-Mild CIWA-Ar Total Score: 11 S Progress Note (SOAP) Subjective: c/o muscle aches, sweats, shakes, anxiety, and headache. Objective: 08/09/20 10:36 Vital Signs 08/09/20 08/09/20 05:08 08:29 Temperature 97.3 F L 96.9 F L Pulse Rate 96 H 102 H Respiratory 18 18 Rate Blood Pressure 149/97 141/95 O2 Sat by Pulse 98 Oximetry (%) Laboratory Last Values WBC 3.5 K/mm3 (4.0-10.0) L 08/09/20 07:40 RBC 4.03 M/mm3 (4.00-5.60) 08/09/20 07:40 Hgb 11.7 GM/dL (11.7-16.9) 08/09/20 07:40 Hct 35.8 % (35.4-49) 08/09/20 07:40 MCV 88.9 fl (80-96) 08/09/20 07:40 MCH 28.9 pg (25.7-33.7) 08/09/20 07:40 MCHC 32.6 g/dl (32.0-35.9) 08/09/20 07:40 RDW 15.5 % (11.9-15.9) D 08/09/20 07:40 Plt Count 230 K/MM3 (134-434) D 08/09/20 07:40 MPV 8.5 fl (7.5-11.1) 08/09/20 07:40 Sodium 133 mmol/L (136-145) L 08/09/20 07:40 Potassium 3.3 mmol/L (3.5-5.1) L 08/09/20 07:40 Chloride 94 mmol/L (98-107) L 08/09/20 07:40 Carbon Dioxide 27 mmol/L (21-32) 08/09/20 07:40 Anion Gap 12 MMOL/L (8-16) 08/09/20 07:40 BUN 6.9 mg/dL (7-18) L 08/09/20 07:40 Creatinine 0.6 mg/dL (0.55-1.3) 08/09/20 07:40 Est GFR (CKD-EPI)AfAm 128.45 08/09/20 07:40 Est GFR (CKD-EPI)NonAf 110.83 08/09/20 07:40 Random Glucose 91 mg/dL (74-106) 08/09/20 07:40 Calcium 8.6 mg/dL (8.5-10.1) 08/09/20 07:40 Total Bilirubin 1.1 mg/dL (0.2-1) H 08/09/20 07:40 AST 62 U/L (15-37) H 08/09/20 07:40 ALT 30 U/L (13-61) 08/09/20 07:40 Alkaline Phosphatase 90 U/L (45-117) 08/09/20 07:40 Total Protein 7.5 g/dl (6.4-8.2) 08/09/20 07:40 Albumin 3.3 g/dl (3.4-5.0) L 08/09/20 07:40 Labs noted with low K+ level. Assessment: 08/09/20 10:36 AOX3, in no acute respiratory distress. Full ROM, ambulating in the unit. Withdrawal symptoms. Hypokalemia. Plan: continue detox. Give potassium chloride 40meq po x1 dose. Repeat K+ level in AM.
[2020-08-09] MEDS: NICOTINE 14 MG/24 HOURS TOPICAL PATCH TD SCH (10:44)
[2020-08-09] MEDS: PRENATAL VITAMINS W/ FOLIC ACID TABLET (FP) PO SCH (10:44)
[2020-08-09] MEDS: amLODIPine BESYLATE 10 MG TABLET (FP) PO SCH (10:44)
[2020-08-09] MEDS: ACETAMINOPHEN 325 MG TABLET (FP) PO PRN (10:47)
[2020-08-09] MEDS ORDERED: PNEUMOC 13-VAL CONJ-DIP CRM/PF 0.5 ML DISP.SYRIN IM ONE (12:00)
[2020-08-09] MEDS ORDERED: PNEUMOCOCCAL 23 VACCINE 0.5 ML VIAL IM ONE (12:00)
[2020-08-09] MEDS ORDERED: MASKS NR ONE (17:08)
[2020-08-09] MEDS: THIAMINE HCL 100 MG TABLET (FP) PO SCH (22:51)
[2020-08-09] MEDS: MELATONIN 5 MG TABLETS PO SCH (23:52)
[2020-08-10] MEDS: LORazepam 1 MG TABLET PO SCH ×4 (06:00→23:21)
[2020-08-10] MEDS: ACETAMINOPHEN 325 MG TABLET (FP) PO PRN ×2 (06:01→18:48)
[2020-08-10] MEDS: METHOCARBAMOL 500 MG TABLET PO PRN ×3 (06:01→18:49)
[2020-08-10] MEDS: NICOTINE 14 MG/24 HOURS TOPICAL PATCH TD SCH (11:01)
[2020-08-10] MEDS: amLODIPine BESYLATE 10 MG TABLET (FP) PO SCH (11:02)
[2020-08-10] MEDS: PRENATAL VITAMINS W/ FOLIC ACID TABLET (FP) PO SCH (11:03)
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
[2020-08-10] MEDS: HYDROCORTISONE 1% TOPICAL OINT 30 GM TUBE TP SCH ×2 (16:47→23:20)
[2020-08-10] MEDS: ALBUTEROL SO4 HFA INHALER IH PRN (21:23)
[2020-08-10] MEDS: MELATONIN 5 MG TABLETS PO SCH (23:20)
[2020-08-10] MEDS: THIAMINE HCL 100 MG TABLET (FP) PO SCH (23:21)
[2020-08-11] MEDS ORDERED: LORazepam 0.5 MG TABLET PO PRN
[2020-08-11] MEDS: HYDROCORTISONE 1% TOPICAL OINT 30 GM TUBE TP SCH ×3 (05:09→22:30)
[2020-08-11] MEDS: LORazepam 0.5 MG TABLET PO SCH ×4 (05:09→22:31)
[2020-08-11] MEDS: METHOCARBAMOL 500 MG TABLET PO PRN ×3 (05:11→22:31)
[2020-08-11] MEDS: ACETAMINOPHEN 325 MG TABLET (FP) PO PRN ×3 (05:12→22:31)
[2020-08-11] MEDS: PRENATAL VITAMINS W/ FOLIC ACID TABLET (FP) PO SCH (10:46)
[2020-08-11] MEDS: amLODIPine BESYLATE 10 MG TABLET (FP) PO SCH (10:46)
[2020-08-11] MEDS: NICOTINE 14 MG/24 HOURS TOPICAL PATCH TD SCH (10:50)
--- NOTE | 2020-08-11 12:08 | PN ---
S CIWA - CIWA Score Nausea/Vomitin-Mild Nausea/No Vomiting Muscle Tremors: 2 Anxiety: 2 Agitation: 2 Paroxysmal Sweats: No Perspiration Orientation: 0-Oriented Tacttile Disturbances: 0-None Auditory Disturbances: 0-None Visual Disturbances: 0-None Headache: 2-Mild CIWA-Ar Total Score: 9 [facility] Progress Note (SOAP) Subjective: alert,irritable,anxious,interrupted sleep,nausea,pain in the left shoulder Objective: 08/11/20 17:37 Vital Signs Temperature 97.8 F 08/11/20 16:20 Pulse Rate 89 08/11/20 16:20 Respiratory Rate 18 08/11/20 16:20 Blood Pressure 123/80 08/11/20 16:20 O2 Sat by Pulse Oximetry (%) 100 08/11/20 14:43 Assessment: 08/11/20 17:37 withdrawal symptom Plan: continue detox ativan regimen,repeat k in am,discharge in am
[2020-08-11] MEDS: ALBUTEROL SO4 HFA INHALER IH PRN ×2 (15:15→19:16)
[2020-08-11] MEDS ORDERED: HEPARIN NA (PORCINE) 5,000 UNITS/ML 1ML VIAL ONE (16:26)
[2020-08-11] MEDS: METHYL SALICYLATE/MENTHOL OINT 30 GM TUBE TP SCH (22:29)
[2020-08-11] MEDS: THIAMINE HCL 100 MG TABLET (FP) PO SCH (22:30)
[2020-08-11] MEDS: MELATONIN 5 MG TABLETS PO SCH (22:31)
[2020-08-12] MEDS ORDERED: LORazepam 0.5 MG TABLET PO ONE (05:00)
[2020-08-12] MEDS: HYDROCORTISONE 1% TOPICAL OINT 30 GM TUBE TP SCH (05:19)
[2020-08-12 09:01] VITALS: BP 129/79; PULSE 89; TEMP 97.6
[2020-08-12] MEDS: amLODIPine BESYLATE 10 MG TABLET (FP) PO SCH (10:08)
[2020-08-12] MEDS: PRENATAL VITAMINS W/ FOLIC ACID TABLET (FP) PO SCH (10:09)
[2020-08-12] MEDS: METHYL SALICYLATE/MENTHOL OINT 30 GM TUBE TP SCH (10:09)
[2020-08-12] MEDS: NICOTINE 14 MG/24 HOURS TOPICAL PATCH TD SCH (10:10)
--- NOTE | 2020-08-12 10:35 | EKG ---
Test Reason : Blood Pressure : / mmHG Vent. Rate : 081 BPM Atrial Rate : 081 BPM P-R Int : 158 ms QRS Dur : 084 ms QT Int : 384 ms P-R-T Axes : 085 079 074 degrees QTc Int : 446 ms SINUS RHYTHM WITH PREMATURE ATRIAL COMPLEXES NONSPECIFIC ST ABNORMALITY ABNORMAL ECG NO PREVIOUS ECGS AVAILABLE Confirmed by MD VIVIANA, LUCIANO ([id number]) on 08/12/2020 10:35:20 AM Referred By: Confirmed By:LUCIANO MICHELLE MD
--- NOTE | 2020-08-12 10:49 | DS ---
[facility] Detox Discharge Summary Admission Date: 08/08/20 Discharge Date: 08/12/20 - History Present History: Alcohol Dependence Additional Comments: alert,oriented x 3 lung clear on auscultation bilaterally abdomen soft,no pain,no tenderness no withdrawal symptom stable for discharge today follow up with after care program as arrangement [facility] total time of discharge spending 35 minutes Pertinent Past History: asthma hypertension positive ppd old injury left shoulder history of syphilis treated - Physical Exam Results Vital Signs: Vital Signs Temperature 97.6 F 08/12/20 08:48 Pulse Rate 89 08/12/20 08:48 Respiratory Rate 16 08/12/20 08:48 Blood Pressure 129/79 08/12/20 08:48 O2 Sat by Pulse Oximetry (%) 99 08/12/20 05:52 Pertinent Admission Physical Exam Findings: withdrawal signs and symptom Laboratory Last Values WBC 3.5 K/mm3 (4.0-10.0) L 08/09/20 07:40 RBC 4.03 M/mm3 (4.00-5.60) 08/09/20 07:40 Hgb 11.7 GM/dL (11.7-16.9) 08/09/20 07:40 Hct 35.8 % (35.4-49) 08/09/20 07:40 MCV 88.9 fl (80-96) 08/09/20 07:40 MCH 28.9 pg (25.7-33.7) 08/09/20 07:40 MCHC 32.6 g/dl (32.0-35.9) 08/09/20 07:40 RDW 15.5 % (11.9-15.9) D 08/09/20 07:40 Plt Count 230 K/MM3 (134-434) D 08/09/20 07:40 MPV 8.5 fl (7.5-11.1) 08/09/20 07:40 Sodium 133 mmol/L (136-145) L 08/09/20 07:40 Potassium 3.9 mmol/L (3.5-5.1) 08/12/20 08:00 Chloride 94 mmol/L (98-107) L 08/09/20 07:40 Carbon Dioxide 27 mmol/L (21-32) 08/09/20 07:40 Anion Gap 12 MMOL/L (8-16) 08/09/20 07:40 BUN 6.9 mg/dL (7-18) L 08/09/20 07:40 Creatinine 0.6 mg/dL (0.55-1.3) 08/09/20 07:40 Est GFR (CKD-EPI)AfAm 128.45 08/09/20 07:40 Est GFR (CKD-EPI)NonAf 110.83 08/09/20 07:40 Random Glucose 91 mg/dL (74-106) 08/09/20 07:40 Calcium 8.6 mg/dL (8.5-10.1) 08/09/20 07:40 Total Bilirubin 1.1 mg/dL (0.2-1) H 08/09/20 07:40 AST 62 U/L (15-37) H 08/09/20 07:40 ALT 30 U/L (13-61) 08/09/20 07:40 Alkaline Phosphatase 90 U/L (45-117) 08/09/20 07:40 Total Protein 7.5 g/dl (6.4-8.2) 08/09/20 07:40 Albumin 3.3 g/dl (3.4-5.0) L 08/09/20 07:40 Syphilis Serology Reactive (NONREACTIVE) A* 08/09/20 07:40 RPR Titer Reactive 1:1 (NONREACTIVE) H D 08/09/20 07:40 COVID-19 (CRESCENCIO) Not detected (Not Detected) 08/08/20 18:30 Vital Signs Temperature 97.6 F 08/12/20 08:48 Pulse Rate 89 08/12/20 08:48 Respiratory Rate 16 08/12/20 08:48 Blood Pressure 129/79 08/12/20 08:48 O2 Sat by Pulse Oximetry (%) 99 08/12/20 05:52 - Treatment Hospital Course: Detox Protocol Followed, Detoxed Safely, Responded well, Discharged Condition Good, Rehab Referral Accepted Patient has Accepted a Rehab Referral to: [facility] - Medication Discharge Medications: Ambulatory Orders Albuterol Sulfate Inhaler - [Ventolin HFA Inhaler -] 2 puff IH Q4HPO PRN #1 inhaler 05/24/16 Amlodipine Besylate [Norvasc -] 10 mg PO DAILY #30 tablet 05/24/16 Halobetasol Prop 0.05% Tp Crm [Ultravate (Nf)] 1 applic TP BID 05/18/19 - Diagnosis (1) Alcohol dependence with uncomplicated withdrawal Status: Chronic (2) History of asthma Status: Chronic (3) Hypertension Status: Chronic Qualifiers: Hypertension type: essential hypertension Qualified Code(s): I10 - Essential (primary) hypertension (4) PPD positive Status: Chronic (5) Injury of left shoulder Status: Chronic - AMA Did Patient Leave Against Medical Advice: No
--- NOTE | 2020-08-12 10:49 | PN ---
[facility] CIWA - CIWA Score Nausea/Vomitin-No Nausea/No Vomiting Muscle Tremors: None Anxiety: 1-Mildly Anxious Agitation: 0-Normal Activity Paroxysmal Sweats: No Perspiration Orientation: 0-Oriented Tacttile Disturbances: 0-None Auditory Disturbances: 0-None Visual Disturbances: 0-None Headache: 0-None Present CIWA-Ar Total Score: 1 S Progress Note (SOAP) Subjective: alert,no complaint Objective: 08/12/20 12:18 Vital Signs Temperature 97.6 F 08/12/20 08:48 Pulse Rate 89 08/12/20 08:48 Respiratory Rate 16 08/12/20 08:48 Blood Pressure 129/79 08/12/20 08:48 O2 Sat by Pulse Oximetry (%) 99 08/12/20 05:52 Assessment: 08/12/20 12:19 detox completed,no withdrawal symptom Plan: stable for discharge today,follow up with after care program [facility] as arrangement
== END 2020-08-12 11:02 | disposition other institution (70) | DRG 775 ==
LOC: YASAS 15:18 → Y3N 18:12
PROVIDERS: ADMIT Allergy & Immunology; ATTEND Allergy & Immunology
PROC: HZ2ZZZZ Detoxification Services for Substance Abuse Treatment (ICD-10-PCS; principal; 2020-08-08)
DX: F10.230 Alcohol dependence with withdrawal, uncomplicated (principal); F12.10 Cannabis abuse, uncomplicated; F17.210 Nicotine dependence, cigarettes, uncomplicated; E87.6 Hypokalemia; E78.5 Hyperlipidemia, unspecified; I10 Essential (primary) hypertension; L40.9 Psoriasis, unspecified; G40.509 Epileptic seizures related to external causes, not intractable, without status epilepticus; R76.11 Nonspecific reaction to tuberculin skin test without active tuberculosis; S49.82XD Other specified injuries of left shoulder and upper arm, subsequent encounter; Y04.0XXD Assault by unarmed brawl or fight, subsequent encounter; Z87.09 Personal history of other diseases of the respiratory system; Z86.19 Personal history of other infectious and parasitic diseases; Z88.8 Allergy status to other drugs, medicaments and biological substances; Z59.0 Homelessness
CPT/HCPCS: 36415; 71046-TC-FY; 80053; 84132; 85027; 86593; 86780; 90732; 93005; 93010; G0009; J1644; U0003

== ENCOUNTER 2020-08-12 10:50 | Inpatient (IN) | payer OTHER ==
[2020-08-12] MEDS ORDERED: MASKS NR ONE (12:03)
[2020-08-12] MEDS ORDERED: NICOTINE POLACRILEX 2 MG GUM BUC PRN (14:30)
[2020-08-12] MEDS ORDERED: IBUPROFEN 400 MG TABLET (FP) PO PRN (14:30)
[2020-08-12] MEDS ORDERED: hydrOXYzine PAMOATE 25 MG CAPSULE (FP) PO PRN (14:30)
[2020-08-12] MEDS ORDERED: MENTHOL/PHENOL 1 EACH UD MM PRN (14:30)
[2020-08-12] MEDS ORDERED: LOPERAMIDE HCL 2 MG CAPSULE PO PRN (14:30)
[2020-08-12] MEDS ORDERED: P-EPHED 60MG/TRIPROLIDI 2.5MG TABLET PO PRN (14:30)
[2020-08-12] MEDS ORDERED: guaiFENesin 200 MG/10 ML 10 ML UNIT-DOSE CUPS PO PRN (14:30)
[2020-08-12] MEDS ORDERED: MAGNESIUM CITRATE 300 ML BOTTLE PO PRN (14:30)
[2020-08-12] MEDS ORDERED: MAGNESIUM HYDROX 2400MG/30ML ORAL SUSPENSION 30 ML CUP PO PRN (14:30)
--- NOTE | 2020-08-12 14:30 | HP ---
[facility] Rehab Assess/Revision - Admission History Admitted to Rehab from: [address] Date of Admission to Rehab: 08/12/20 - Vital signs Vital Signs: Vital Signs Period Temp Pulse Resp BP Sys/Webb Pulse Ox Last 24 Hr 97.5 F 87 18 140/65 95 - Findings Detox History & Physical reviewed: Yes Concur with findings: Yes Comments/Additional Findings: Pt is a 60 y/o male admitted to rehab from [address] [place] [address]. PMHx:HTN, HLD, Vit d defficiency, Psoriasis. Psych Hx: Denies. Alert o x 3. nad. oob ambulating with steady gait. Skin:lesions on hands-hx psorias is-on tx. S/P detox. Maintain safety. Cont current orders Inpatient Rehab Admission - Rehab Decision to Admit Inpatient rehab admission?: Yes - Initial Determination Are CD services needed?: Yes Free of communicable disease: Yes Not in need of hospitalization: Yes - Rehab Admission Criteria Previous failed treatment: Yes Poor recovery environment: Yes Comorbidities: Yes Lacks judgement: Yes Patient is meeting Inpatient Rehab admission criteria:: Yes
[2020-08-12] MEDS: ALBUTEROL SO4 HFA INHALER IH PRN (15:26)
[2020-08-12] MEDS: THIAMINE HCL 100 MG TABLET (FP) PO SCH (21:31)
[2020-08-12] MEDS: MELATONIN 5 MG TABLETS PO SCH (21:31)
[2020-08-12] MEDS ORDERED: HALOBETASOL PROP TP SCH (22:00)
[2020-08-13] MEDS: ALBUTEROL SO4 HFA INHALER IH PRN (04:40)
[2020-08-13] MEDS: PRENATAL VITAMINS W/ FOLIC ACID TABLET (FP) PO SCH (10:20)
[2020-08-13] MEDS: amLODIPine BESYLATE 10 MG TABLET (FP) PO SCH (10:20)
[2020-08-13] MEDS: NICOTINE 7 MG/24 HOURS TOPICAL PATCH TD SCH (10:26)
[2020-08-13] MEDS ORDERED: PNEUMOC 13-VAL CONJ-DIP CRM/PF 0.5 ML DISP.SYRIN IM ONE (12:20)
[2020-08-13] MEDS ORDERED: FLUOCINONIDE 0.05% TOP OINT (60 GM TUBE) TP SCH (14:00)
[2020-08-13] MEDS ORDERED: PT OWN MED DRAWER 7, Y5N ONE (15:28)
[2020-08-13] MEDS: ASPIRIN 81 MG CHEWABLE TABLETS PO SCH (16:19)
[2020-08-13] MEDS: CHOLECALCIFEROL (VIT D3) 1,000 UNIT (25 MCG) TABLET PO SCH (16:20)
[2020-08-13] MEDS: METHOCARBAMOL 500 MG TABLET PO SCH ×3 (16:20→21:13)
[2020-08-13] MEDS: THIAMINE HCL 100 MG TABLET (FP) PO SCH (21:12)
[2020-08-13] MEDS: ATORVASTATIN CA 40 MG TABLET (FP) PO SCH (21:13)
[2020-08-13] MEDS: MELATONIN 5 MG TABLETS PO SCH (21:13)
[2020-08-13] MEDS: FLUOCINONIDE 0.05% TOP OINT (60 GM TUBE) TP SCH (21:14)
[2020-08-13] MEDS: ACETAMINOPHEN 325 MG TABLET (FP) PO PRN (21:15)
[2020-08-14] MEDS: ALBUTEROL SO4 HFA INHALER IH PRN ×3 (06:17→21:34)
[2020-08-14] MEDS ORDERED: PT OWN MED DRAWER 7, Y5N ONE ×2 (08:15→09:23)
[2020-08-14] MEDS: METHOCARBAMOL 500 MG TABLET PO SCH ×4 (09:23→21:34)
[2020-08-14] MEDS: PRENATAL VITAMINS W/ FOLIC ACID TABLET (FP) PO SCH (09:23)
[2020-08-14] MEDS: FLUOCINONIDE 0.05% TOP OINT (60 GM TUBE) TP SCH (09:24)
[2020-08-14] MEDS: amLODIPine BESYLATE 10 MG TABLET (FP) PO SCH (09:24)
[2020-08-14] MEDS: ASPIRIN 81 MG CHEWABLE TABLETS PO SCH (09:24)
[2020-08-14] MEDS: AMMONIUM LACTATE 12% LOTION 225 GM BOTTLE TP PRN (09:25)
[2020-08-14] MEDS: CHOLECALCIFEROL (VIT D3) 1,000 UNIT (25 MCG) TABLET PO SCH (09:25)
[2020-08-14] MEDS: NICOTINE 7 MG/24 HOURS TOPICAL PATCH TD SCH (09:25)
[2020-08-14] MEDS: SODIUM CHLORIDE NASAL SPRAY 44 ML BOTTLE NS PRN ×2 (09:26→21:33)
[2020-08-14] MEDS: METHYL SALICYLATE/MENTHOL OINT 30 GM TUBE TP SCH (09:26)
[2020-08-14] MEDS ORDERED: TRIAMCINOLONE ACET 0.5% CREAM 15 GM TUBE TP SCH (10:00)
[2020-08-14] MEDS: TRIAMCINOLONE ACET 0.5% OINT 15 GM TUBE TP SCH (21:33)
[2020-08-14] MEDS: ATORVASTATIN CA 40 MG TABLET (FP) PO SCH (21:34)
[2020-08-14] MEDS: THIAMINE HCL 100 MG TABLET (FP) PO SCH (21:34)
[2020-08-14] MEDS: ACETAMINOPHEN 325 MG TABLET (FP) PO PRN (21:35)
[2020-08-14] MEDS: MELATONIN 5 MG TABLETS PO SCH (21:51)
[2020-08-15] MEDS: METHOCARBAMOL 500 MG TABLET PO SCH ×4 (10:25→21:14)
[2020-08-15] MEDS: PRENATAL VITAMINS W/ FOLIC ACID TABLET (FP) PO SCH (10:25)
[2020-08-15] MEDS: amLODIPine BESYLATE 10 MG TABLET (FP) PO SCH (10:25)
[2020-08-15] MEDS: CHOLECALCIFEROL (VIT D3) 1,000 UNIT (25 MCG) TABLET PO SCH (10:25)
[2020-08-15] MEDS: ASPIRIN 81 MG CHEWABLE TABLETS PO SCH (10:25)
[2020-08-15] MEDS: TRIAMCINOLONE ACET 0.5% OINT 15 GM TUBE TP SCH ×2 (10:26→21:16)
[2020-08-15] MEDS: AMMONIUM LACTATE 12% LOTION 225 GM BOTTLE TP PRN (10:26)
[2020-08-15] MEDS ORDERED: PT OWN MED DRAWER 7, Y5N ONE ×2 (10:27→21:16)
[2020-08-15] MEDS: METHYL SALICYLATE/MENTHOL OINT 30 GM TUBE TP SCH (10:27)
[2020-08-15] MEDS: ALBUTEROL SO4 HFA INHALER IH PRN (10:30)
[2020-08-15] MEDS: NICOTINE 7 MG/24 HOURS TOPICAL PATCH TD SCH (10:30)
[2020-08-15] MEDS: SODIUM CHLORIDE NASAL SPRAY 44 ML BOTTLE NS PRN (10:31)
[2020-08-15] MEDS: ATORVASTATIN CA 40 MG TABLET (FP) PO SCH (21:14)
[2020-08-15] MEDS: THIAMINE HCL 100 MG TABLET (FP) PO SCH (21:14)
[2020-08-15] MEDS: ACETAMINOPHEN 325 MG TABLET (FP) PO PRN (21:16)
[2020-08-15] MEDS: MELATONIN 5 MG TABLETS PO SCH (21:18)
[2020-08-16] MEDS: amLODIPine BESYLATE 10 MG TABLET (FP) PO SCH (10:05)
[2020-08-16] MEDS: METHOCARBAMOL 500 MG TABLET PO SCH ×4 (10:05→21:46)
[2020-08-16] MEDS: ASPIRIN 81 MG CHEWABLE TABLETS PO SCH (10:05)
[2020-08-16] MEDS: CHOLECALCIFEROL (VIT D3) 1,000 UNIT (25 MCG) TABLET PO SCH (10:05)
[2020-08-16] MEDS: AMMONIUM LACTATE 12% LOTION 225 GM BOTTLE TP PRN (10:05)
[2020-08-16] MEDS: PRENATAL VITAMINS W/ FOLIC ACID TABLET (FP) PO SCH (10:05)
[2020-08-16] MEDS: NICOTINE 7 MG/24 HOURS TOPICAL PATCH TD SCH (10:05)
[2020-08-16] MEDS: TRIAMCINOLONE ACET 0.5% OINT 15 GM TUBE TP SCH ×2 (10:06→21:48)
[2020-08-16] MEDS ORDERED: PT OWN MED DRAWER 7, Y5N ONE ×5 (10:06→21:48)
[2020-08-16] MEDS: ACETAMINOPHEN 325 MG TABLET (FP) PO PRN (10:07)
[2020-08-16] MEDS: ALBUTEROL SO4 HFA INHALER IH PRN (10:07)
[2020-08-16] MEDS: METHYL SALICYLATE/MENTHOL OINT 30 GM TUBE TP SCH (10:43)
[2020-08-16] MEDS: ATORVASTATIN CA 40 MG TABLET (FP) PO SCH (21:45)
[2020-08-16] MEDS: THIAMINE HCL 100 MG TABLET (FP) PO SCH (21:46)
[2020-08-16] MEDS: MELATONIN 5 MG TABLETS PO SCH (21:46)
[2020-08-17] MEDS ORDERED: PT OWN MED DRAWER 7, Y5N ONE ×5 (08:35→21:16)
[2020-08-17] MEDS: SODIUM CHLORIDE NASAL SPRAY 44 ML BOTTLE NS PRN (09:29)
[2020-08-17] MEDS: ASPIRIN 81 MG CHEWABLE TABLETS PO SCH (09:30)
[2020-08-17] MEDS: PRENATAL VITAMINS W/ FOLIC ACID TABLET (FP) PO SCH (09:30)
[2020-08-17] MEDS: amLODIPine BESYLATE 10 MG TABLET (FP) PO SCH (09:30)
[2020-08-17] MEDS: METHOCARBAMOL 500 MG TABLET PO SCH ×4 (09:30→21:13)
[2020-08-17] MEDS: NICOTINE 7 MG/24 HOURS TOPICAL PATCH TD SCH (09:30)
[2020-08-17] MEDS: CHOLECALCIFEROL (VIT D3) 1,000 UNIT (25 MCG) TABLET PO SCH (09:30)
[2020-08-17] MEDS: TRIAMCINOLONE ACET 0.5% OINT 15 GM TUBE TP SCH ×2 (09:31→21:15)
[2020-08-17] MEDS: METHYL SALICYLATE/MENTHOL OINT 30 GM TUBE TP SCH (09:31)
[2020-08-17] MEDS: ALBUTEROL SO4 HFA INHALER IH PRN (09:33)
[2020-08-17] MEDS: MAG HYDROX/AL HYDROX/SIMETH 30 ML UNIT-DOSE CUP PO PRN (19:28)
[2020-08-17] MEDS: ATORVASTATIN CA 40 MG TABLET (FP) PO SCH (21:13)
[2020-08-17] MEDS: THIAMINE HCL 100 MG TABLET (FP) PO SCH (21:13)
[2020-08-17] MEDS: MELATONIN 5 MG TABLETS PO SCH (21:13)
[2020-08-17] MEDS: ACETAMINOPHEN 325 MG TABLET (FP) PO PRN (21:14)
[2020-08-18] MEDS ORDERED: PT OWN MED DRAWER 7, Y5N ONE (09:00)
[2020-08-18] MEDS: PRENATAL VITAMINS W/ FOLIC ACID TABLET (FP) PO SCH (10:23)
[2020-08-18] MEDS: ASPIRIN 81 MG CHEWABLE TABLETS PO SCH (10:23)
[2020-08-18] MEDS: amLODIPine BESYLATE 10 MG TABLET (FP) PO SCH (10:23)
[2020-08-18] MEDS: CHOLECALCIFEROL (VIT D3) 1,000 UNIT (25 MCG) TABLET PO SCH (10:23)
[2020-08-18] MEDS: TRIAMCINOLONE ACET 0.5% OINT 15 GM TUBE TP SCH ×2 (10:24→21:41)
[2020-08-18] MEDS: ALBUTEROL SO4 HFA INHALER IH PRN ×2 (10:24→21:41)
[2020-08-18] MEDS: NICOTINE 7 MG/24 HOURS TOPICAL PATCH TD SCH (10:24)
[2020-08-18] MEDS: METHYL SALICYLATE/MENTHOL OINT 30 GM TUBE TP SCH (10:24)
[2020-08-18] MEDS: SODIUM CHLORIDE NASAL SPRAY 44 ML BOTTLE NS PRN ×2 (10:26→21:41)
[2020-08-18] MEDS: ACETAMINOPHEN 325 MG TABLET (FP) PO PRN ×2 (10:29→21:42)
[2020-08-18] MEDS: METHOCARBAMOL 500 MG TABLET PO SCH ×4 (10:29→21:40)
[2020-08-18] MEDS: MAG HYDROX/AL HYDROX/SIMETH 30 ML UNIT-DOSE CUP PO PRN (19:50)
[2020-08-18] MEDS: ATORVASTATIN CA 40 MG TABLET (FP) PO SCH (21:40)
[2020-08-18] MEDS: THIAMINE HCL 100 MG TABLET (FP) PO SCH (21:40)
[2020-08-18] MEDS: MELATONIN 5 MG TABLETS PO SCH (21:40)
[2020-08-19] MEDS: TRIAMCINOLONE ACET 0.5% OINT 15 GM TUBE TP SCH ×2 (10:27→21:12)
[2020-08-19] MEDS: PRENATAL VITAMINS W/ FOLIC ACID TABLET (FP) PO SCH (10:27)
[2020-08-19] MEDS: CHOLECALCIFEROL (VIT D3) 1,000 UNIT (25 MCG) TABLET PO SCH (10:27)
[2020-08-19] MEDS: ASPIRIN 81 MG CHEWABLE TABLETS PO SCH (10:28)
[2020-08-19] MEDS: amLODIPine BESYLATE 10 MG TABLET (FP) PO SCH (10:28)
[2020-08-19] MEDS: METHYL SALICYLATE/MENTHOL OINT 30 GM TUBE TP SCH (10:30)
[2020-08-19] MEDS: NICOTINE 7 MG/24 HOURS TOPICAL PATCH TD SCH (10:30)
[2020-08-19] MEDS ORDERED: PT OWN MED DRAWER 7, Y5N ONE (10:31)
[2020-08-19] MEDS: METHOCARBAMOL 500 MG TABLET PO SCH ×4 (10:31→21:10)
[2020-08-19] MEDS: ACETAMINOPHEN 325 MG TABLET (FP) PO PRN ×2 (10:34→21:12)
[2020-08-19] MEDS: SODIUM CHLORIDE NASAL SPRAY 44 ML BOTTLE NS PRN (10:35)
[2020-08-19] MEDS: ALBUTEROL SO4 HFA INHALER IH PRN (10:35)
[2020-08-19] MEDS: ATORVASTATIN CA 40 MG TABLET (FP) PO SCH (21:10)
[2020-08-19] MEDS: THIAMINE HCL 100 MG TABLET (FP) PO SCH (21:10)
[2020-08-19] MEDS: MELATONIN 5 MG TABLETS PO SCH (21:10)
[2020-08-20] MEDS ORDERED: PT OWN MED DRAWER 7, Y5N ONE (08:42)
[2020-08-20] MEDS: CHOLECALCIFEROL (VIT D3) 1,000 UNIT (25 MCG) TABLET PO SCH (09:53)
[2020-08-20] MEDS: NICOTINE 7 MG/24 HOURS TOPICAL PATCH TD SCH (09:53)
[2020-08-20] MEDS: amLODIPine BESYLATE 10 MG TABLET (FP) PO SCH (09:54)
[2020-08-20] MEDS: METHYL SALICYLATE/MENTHOL OINT 30 GM TUBE TP SCH (09:54)
[2020-08-20] MEDS: TRIAMCINOLONE ACET 0.5% OINT 15 GM TUBE TP SCH ×2 (09:54→21:36)
[2020-08-20] MEDS: PRENATAL VITAMINS W/ FOLIC ACID TABLET (FP) PO SCH (09:54)
[2020-08-20] MEDS: ASPIRIN 81 MG CHEWABLE TABLETS PO SCH (09:54)
[2020-08-20] MEDS: SODIUM CHLORIDE NASAL SPRAY 44 ML BOTTLE NS PRN ×2 (09:55→21:36)
[2020-08-20] MEDS: ALBUTEROL SO4 HFA INHALER IH PRN ×2 (09:55→21:36)
[2020-08-20] MEDS: METHOCARBAMOL 500 MG TABLET PO SCH ×4 (10:23→21:35)
[2020-08-20] MEDS: ATORVASTATIN CA 40 MG TABLET (FP) PO SCH (21:36)
[2020-08-20] MEDS: MELATONIN 5 MG TABLETS PO SCH (21:36)
[2020-08-20] MEDS: THIAMINE HCL 100 MG TABLET (FP) PO SCH (21:36)
[2020-08-20] MEDS: MAG HYDROX/AL HYDROX/SIMETH 30 ML UNIT-DOSE CUP PO PRN (21:39)
[2020-08-21 09:14] VITALS: BP 122/67; PULSE 103
[2020-08-21] MEDS: PRENATAL VITAMINS W/ FOLIC ACID TABLET (FP) PO SCH (09:35)
[2020-08-21] MEDS: SODIUM CHLORIDE NASAL SPRAY 44 ML BOTTLE NS PRN (09:35)
[2020-08-21] MEDS: ASPIRIN 81 MG CHEWABLE TABLETS PO SCH (09:35)
[2020-08-21] MEDS: CHOLECALCIFEROL (VIT D3) 1,000 UNIT (25 MCG) TABLET PO SCH (09:35)
[2020-08-21] MEDS: METHOCARBAMOL 500 MG TABLET PO SCH ×5 (09:35→21:10)
[2020-08-21] MEDS: TRIAMCINOLONE ACET 0.5% OINT 15 GM TUBE TP SCH ×2 (09:35→21:12)
[2020-08-21] MEDS: METHYL SALICYLATE/MENTHOL OINT 30 GM TUBE TP SCH (09:36)
[2020-08-21] MEDS: NICOTINE 7 MG/24 HOURS TOPICAL PATCH TD SCH (09:36)
[2020-08-21] MEDS: ALBUTEROL SO4 HFA INHALER IH PRN (09:36)
[2020-08-21] MEDS: amLODIPine BESYLATE 10 MG TABLET (FP) PO SCH (09:36)
[2020-08-21] MEDS: ACETAMINOPHEN 325 MG TABLET (FP) PO PRN ×2 (14:45→21:12)
[2020-08-21] MEDS ORDERED: BENZOCAINE 28 GM HEMORRHOIDAL OINTMENT PR PRN (16:01)
[2020-08-21] MEDS ORDERED: PT OWN MED DRAWER 7, Y5N ONE (18:56)
[2020-08-21 20:48] VITALS: TEMP 98.6
[2020-08-21] MEDS: THIAMINE HCL 100 MG TABLET (FP) PO SCH (21:10)
[2020-08-21] MEDS: ATORVASTATIN CA 40 MG TABLET (FP) PO SCH (21:10)
[2020-08-21] MEDS: MELATONIN 5 MG TABLETS PO SCH (21:11)
[2020-08-22] MEDS: ASPIRIN 81 MG CHEWABLE TABLETS PO SCH (09:07)
[2020-08-22] MEDS: CHOLECALCIFEROL (VIT D3) 1,000 UNIT (25 MCG) TABLET PO SCH (09:07)
[2020-08-22] MEDS: amLODIPine BESYLATE 10 MG TABLET (FP) PO SCH (09:07)
[2020-08-22] MEDS: NICOTINE 7 MG/24 HOURS TOPICAL PATCH TD SCH (09:08)
[2020-08-22] MEDS: PRENATAL VITAMINS W/ FOLIC ACID TABLET (FP) PO SCH (09:08)
[2020-08-22] MEDS: METHOCARBAMOL 500 MG TABLET PO SCH (09:08)
[2020-08-22] MEDS: TRIAMCINOLONE ACET 0.5% OINT 15 GM TUBE TP SCH (09:10)
[2020-08-22] MEDS: METHYL SALICYLATE/MENTHOL OINT 30 GM TUBE TP SCH (09:10)
[2020-08-22] MEDS ORDERED: PT OWN MED DRAWER 7, Y5N ONE (09:13)
--- NOTE | 2020-08-22 09:26 | DS ---
[facility] Rehab Discharge Summary - [facility] Rehab Discharge Summary Admission Date: 08/12/20 Discharge Date: 08/22/20 - History Present History: Alcohol dependence - Discharge Physical Exam Vital Signs: Vital Signs Temperature 98.6 F 08/21/20 20:26 Pulse Rate 103 H 08/21/20 08:28 Respiratory Rate 18 08/21/20 08:28 Blood Pressure 122/67 08/21/20 08:28 O2 Sat by Pulse Oximetry (%) 95 08/21/20 20:26 ROS: denies chest pain, sob, dizziness, shakes and headaches. PE alert and oriented x 3 skin warm and dry car s1s2, rrr, no murmurs or gallops resp cta bl, no wheezing/rales ext full rom, amb ad monisha no tremors denies SI/HI A/P: alcohol dependence asthma patient is medically stable for discharge aftercare arranged for [facility], appt 08/25/2020 - Treatment Discharge Condition: Discharge condition good, Rehabilitated safely, Responded well, Outpatient referral accepted Hospital Course: Patient discharged from rehab today for alcohol dependence. Patient is medically stable and denies SI/HI. During course of treatment, patient attended group meetings and 1:1 sessions with counseling staff. Aftercare arranged for [facility] for 08/25/2020. Patient medically advised to follow up with PCP and OTP as recommended to prevent relapse. Ambulatory Orders Halobetasol Prop 0.05% Tp Crm [Ultravate (Nf) -] 1 applic TP BID 05/18/19 Albuterol Sulfate Inhaler - [Ventolin HFA Inhaler -] 2 puff IH Q4HPO PRN #1 inhaler 08/21/20 Amlodipine Besylate [Norvasc -] 10 mg PO DAILY #30 tablet 08/21/20 - Medication Discharge Medications: Ambulatory Orders Halobetasol Prop 0.05% Tp Crm [Ultravate (Nf) -] 1 applic TP BID 05/18/19 Albuterol Sulfate Inhaler - [Ventolin HFA Inhaler -] 2 puff IH Q4HPO PRN #1 inhaler 08/21/20 Amlodipine Besylate [Norvasc -] 10 mg PO DAILY #30 tablet 08/21/20 - Medication-Assisted Treatment (MAT) Medication-Assisted Treatment (MAT): No - Discharge Instructions Diet, activity, other medical instructions: Diet: reg as tolerated Activity: ad monisha as tolerated Other medical instructions: f/u with pcp as recommended - Follow-up Referral Minutes to complete discharge: 35 - AMA Did Patient Leave Against Medical Advice: No
== END 2020-08-22 09:30 | disposition home or self-care (01) | DRG 772 ==
LOC: YASAS 10:50 → Y3W 10:51
PROVIDERS: ADMIT Allergy & Immunology; ATTEND Allergy & Immunology
PROC: HZ42ZZZ Group Counseling for Substance Abuse Treatment, Cognitive-Behavioral (ICD-10-PCS; principal; 2020-08-12)
DX: F10.20 Alcohol dependence, uncomplicated (principal); I10 Essential (primary) hypertension; J45.909 Unspecified asthma, uncomplicated; E78.5 Hyperlipidemia, unspecified; E55.9 Vitamin D deficiency, unspecified; L40.9 Psoriasis, unspecified; Z88.8 Allergy status to other drugs, medicaments and biological substances